=== PATIENT | male | born 1955 | race Caucasian/White ===

== ENCOUNTER → 2020-05-21 | Outpatient (CLI) | payer BC, OTHER ==
[~2020-05-21] MED LIST: ACTOPLUS MET X1 EAC1 PO; ADULT LOW DOSE81 MG PO; CARVEDILOL6.25 MG PO; CRESTOR40 MG PO; FISH OIL 1,0001 EAC5 PO; VITAMIN D1000 UNI1 PO; ZETIA10 MG PO
[2020-05-21 12:15] VITALS: BP 133/79
[2020-05-21 12:38] VITALS: BP 128/77
--- NOTE | 2020-05-21 17:54 | LINQ ---
[facility] [place] [place] [place] [address] LINQ PROCEDURE REPORT Name: LUX LOCK Room #: REG [facility] Nicol#: [id number] Admission: 05/21/20 Attend Phys: Wil Aguilar Discharge: Date of : 59 Report #: [id number] THIS REPORT FOR: cc: Pavel Stewart MD, Troy A. MD Lammoglia, Francisco J. 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 Implanted Devices: Medtronic Reveal LINQ Model # LNQ11, S# [id number] Procedure The patient underwent informed consent. We discussed the details of the procedure including the risks, which include, but not limited to bleeding, infection, vascular damage, cardiac perforation, and pneumothorax. The patient was brought to the cardiac catheterization prepped and hold. Left chest was prepped and draped in usual sterile manner. Utilizing 1% lidocaine a wheal was raised and then extended towards the insertion tract. Utilizing 11 blade a skin incision was made and a pocket was developed utilizing both sharp and blunt dissection. The device was then deployed with the deployment tool. Subcutaneous tissue was closed in opposed with 2 simple interrupted sutures. The skin utilize a 3-0 running subcuticular stitch for closure. Steri-Strips 4 x 4 OpSite were utilized. Patient tolerated procedure well there were no complications Complications The patient tolerated the procedure well and there were no complications associated with the procedure. Findings [place] [address] [place] [address] LINQ PROCEDURE REPORT Name: HAYDELUX R Room #: REG CL Nicol#: [id number] Admission: 05/21/20 Attend Phys: Wil Smallwood Discharge: Date of : 59 Report #: [id number] Estimated Blood Loss: 0 Conclusion 1. Successful implantation of a Medtronic Linq implantable loop recorder Recommendations 1. Routine postimplantation protocol <ELECTRONICALLY SIGNED> By: Wil Aguilar MD 05/21/201752 52 52 Wil Aguilar MD /INF
== END | disposition home or self-care (01) ==
LOC: CATH 08:57
PROVIDERS: ATTEND Internal Medicine
DX: I63.9 Cerebral infarction, unspecified (principal); Z98.890 Other specified postprocedural states; Z79.899 Other long term (current) drug therapy; Z79.82 Long term (current) use of aspirin; Z88.8 Allergy status to other drugs, medicaments and biological substances